=== PATIENT | female | born 1975 | race Caucasian/White ===

== ENCOUNTER 2016-12-16 14:41 | Inpatient (IN) | payer BC ==
[~2016-12-16] VITALS: Ht 165.1 cm; Wt 116.0 kg
[~2016-12-16 14:41] MED LIST: CYANOCOBAL1000 MCG/2 IM; ENDOCET 5-3251 EACH PO; FEOSOL325 MG PO; MOTRIN800 MG PO; PRENATAL TABLE1 EAC3 PO; THERAGRAN1 TABLET PO; TUMS DUAL ACTI1 EACH PO; TYLENOL EXTRA500 MG PO; ~No Medications
[2016-12-16] MEDS ORDERED: B-12 COMPL1000 MCG/1 IM (15:45)
[2016-12-16 16:44] LABS: EOSINOPHIL (%) 0.4 % (0-5); HEMATOCRIT 35.8 % (36.0-46.0); IMMATURE GRANULOCYTE (%) 0.4 % (0.0-0.7); INSTRUMENT ABS NEUTROPHIL CT 8.2 K/uL; LYMPHOCYTE COUNT 1.6 K/uL (1.0-2.8); MCH 26.6 PG (29.0-34.0); MCHC 31.3 G/DL (30.0-36.0); MONOCYTE (%) 8.3 % (3-12); MONOCYTE COUNT 0.9 K/uL (0-0.8); NEUTROPHIL (%) 76.1 % (45-76); NEUTROPHIL COUNT 8.2 K/uL (1.8-6.4); PLATELET COUNT 209 K/uL (156-360); RBC DIS.WIDTH-CV 14.3 % (11.8-14.6); RED BLOOD COUNT 4.21 M/uL (3.80-5.20); WHITE BLOOD COUNT 10.7 K/uL (4.1-10.2)
[2016-12-16 17:00] LABS: ANION GAP 7 MEQ/L (2-14); CHLORIDE 109 MEQ/L (99-109); POTASSIUM 4.2 MEQ/L (3.7-5.4); SAMPLE HEMOLYSIS CHECK 0; SAMPLE ICTERIC CHECK 0; SAMPLE LIPEMIA CHECK 0; SODIUM 139 MEQ/L (136-147); TOTAL BILIRUBIN 0.3 MG/DL (0.0-1.0)
[2016-12-16 17:06] LABS: ALKALINE PHOSPHATASE 122 IU/L (3-129); GFR ESTIMATE (CALCULATED) > 59 mL/min/; GLUCOSE 76 mg/dL (70-99); UREA NITROGEN (BUN) 8 mg/dL (9-23)
[2016-12-16 19:18] VITALS: BP 131/60
[2016-12-16 21:45] VITALS: BP 134/77
[2016-12-16 23:43] VITALS: BP 129/64
[2016-12-17] VITALS (38 sets, daily range): BP systolic 74–153; BP diastolic 31–82
[2016-12-18] VITALS (10 sets, daily range): BP systolic 110–151; BP diastolic 55–75
[2016-12-19 07:06] LABS: EOSINOPHIL (%) 0.9 % (0-5); EOSINOPHIL COUNT 0.1 K/uL (0-0.3); HEMATOCRIT 29.3 % (36.0-46.0); IMMATURE GRANULOCYTE (%) 0.3 % (0.0-0.7); INSTRUMENT ABS NEUTROPHIL CT 6.6 K/uL; LYMPHOCYTE COUNT 2.1 K/uL (1.0-2.8); MCH 26.7 PG (29.0-34.0); MCHC 31.4 G/DL (30.0-36.0); MCV 85.2 FL (83-99); MONOCYTE (%) 7.2 % (3-12); MONOCYTE COUNT 0.7 K/uL (0-0.8); NEUTROPHIL (%) 69.1 % (45-76); NEUTROPHIL COUNT 6.6 K/uL (1.8-6.4); PLATELET COUNT 182 K/uL (156-360); RBC DIS.WIDTH-CV 14.5 % (11.8-14.6); RBC DIS.WIDTH-SD 44.9 % (39-53); RED BLOOD COUNT 3.44 M/uL (3.80-5.20); WHITE BLOOD COUNT 9.6 K/uL (4.1-10.2)
[2016-12-19 23:21] VITALS: BP 116/70
[2016-12-20 07:39] VITALS: BP 139/79
[2016-12-20] MEDS ORDERED: IBUPROFEN800 MG PO (11:56)
[2016-12-20] MEDS ORDERED: FERROUS GLUCON324 MG PO (11:57)
== END 2016-12-20 14:43 | disposition home or self-care (01) | DRG 775 ==
LOC: LDRP-OP → 2WEST 14:42 → LDRP-OP 01-17 11:37
PROVIDERS: Advanced Practice Midwife
DX: O40.3XX0 Polyhydramnios, third trimester, not applicable or unspecified (principal); O99.214 Obesity complicating childbirth; E66.01 Morbid (severe) obesity due to excess calories; Z68.39 Body mass index [BMI] 39.0-39.9, adult; Z3A.40 40 weeks gestation of pregnancy; O77.0 Labor and delivery complicated by meconium in amniotic fluid; O09.523 Supervision of elderly multigravida, third trimester; Z37.0 Single live birth
CPT/HCPCS: 80053; 85025; 86850; 86900; 86901; C1755; G0378; J0595; J2405; J3010; J7120

== ENCOUNTER 2018-04-17 10:24 | Day surgery (SDC) | payer BC ==
[~2018-04-17] VITALS: Ht 165.1 cm; Wt 114.3 kg
[~2018-04-17 10:24] MED LIST changes: +B-12 COMPL1000 MCG/1 IM; +ERGOCALCIF50000 UNIT PO; +FERROUS GLUCON324 MG PO; +IBUPROFEN800 MG PO; +ZYRTEC10 M3 PO
[2018-04-17 10:51] VITALS: BP 140/87
[2018-04-17] MEDS ORDERED: NORCO 5/3251 TABLET PO (13:27)
[2018-04-17 14:47] VITALS: BP 139/74
[2018-04-17 15:32] VITALS: BP 130/70
== END 2018-04-17 15:47 | disposition home or self-care (01) ==
LOC: SDC 10:24
PROC: 0JBM0ZZ Excision of Left Upper Leg Subcutaneous Tissue and Fascia, Open Approach (ICD-10-PCS; principal; 2018-04-17)
DX: D17.24 Benign lipomatous neoplasm of skin and subcutaneous tissue of left leg (principal); E66.01 Morbid (severe) obesity due to excess calories; Z98.84 Bariatric surgery status; Z68.41 Body mass index [BMI] 40.0-44.9, adult
CPT/HCPCS: 88304; J0690; J1100; J1170; J2405; J3010